=== PATIENT | male | born 1960 | race African-American/Black ===

== ENCOUNTER 2022-05-18 23:39 | Emergency (ER) | payer OTHER ==
[~2022-05-18] VITALS: Ht 177.8 cm; Wt 72.6 kg
[2022-05-18 23:55] VITALS: BP 118/81
--- NOTE | 2022-05-19 00:01 | NUR ---
PT WAS PROVIDED WITH SNACKS AND WARM BLANKET. HOMELESS NURSING HOME RESOURCES GIVEN.
== END 2022-05-19 00:02 | disposition home or self-care (01) ==
LOC: ER 23:57
DX: Z59.00 Homelessness unspecified (principal)